=== PATIENT | male | born 1950 | race Caucasian/White ===

== ENCOUNTER 2019-12-14 11:49 | Emergency (ER) | payer SELFPAY ==
[~2019-12-14] VITALS: Ht 162.6 cm; Wt 71.2 kg
[~2019-12-14 11:49] MED LIST: BACL10TA PO; NAPR250T PO
[2019-12-14 11:58] VITALS: BP_SYST 145
[2019-12-14 12:53] LABS: ANION GAP 7 (5-15); BASOPHILS % (AUTO) 0.5 % (0.0-2.0); CALCIUM 8.4 mg/dL (8.4-11.0); CHLORIDE 104 mmol/L (98-107); EOSINOPHILS % (AUTO) 0.5 % (0.0-4.0); GLUCOSE 139 mg/dL (70-99); HEMATOCRIT 40.4 % (36-54); HEMOGLOBIN 13.6 g/dL (14.0-18.0); LYMPHOCYTES # (AUTO) 1.5 K/uL (1.0-5.5); LYMPHOCYTES % (AUTO) 18.9 % (20.5-51.5); MEAN CORPUSCULAR HEMOGLOBIN 31 pg (27-31); MEAN CORPUSCULAR HGB CONC 34 % (32-36); MEAN CORPUSCULAR VOLUME 91 fL (79.0-98.0); MONOCYTES # (AUTO) 0.4 K/uL (0.0-1.0); MONOCYTES % (AUTO) 4.5 % (1.7-9.3); NEUTROPHILS # (AUTO) 6.2 K/uL (1.8-7.7); NEUTROPHILS % (AUTO) 75.6 % (40.0-70.0); PLATELET COUNT (AUTO) 252 K/uL (130-430); POTASSIUM 3.3 mmol/L (3.5-5.1); RED BLOOD CELL COUNT(AUTO) 4.46 MIL/uL (4.2-6.2); RED CELL DISTRIBUTION WIDTH 14.2 % (9.0-15.0); SODIUM SERUM 139 mmol/L (136-145); UREA NITROGEN, BLOOD 14 mg/dL (8-21); WHITE BLOOD COUNT (AUTO) 8.2 K/uL (4.8-10.8)
[2019-12-14 12:56] LABS: GFR AFRICAN AMERICAN 86 mL/min (>90)
[2019-12-14 13:01] LABS: BILIRUBIN,URINE NEGATIVE (NEGATIVE); BLOOD, URINE NEGATIVE (NEGATIVE); CLARITY/URINE CLEAR (CLEAR); COLOR,URINE YELLOW (YELLOW); GLUCOSE,URINE NEGATIVE (NEGATIVE); KETONES,URINE NEGATIVE (NEGATIVE); LEUKOCYTE ESTERASE ,URINE NEGATIVE (NEGATIVE); NITRITE, URINE NEGATIVE (NEGATIVE); PROTEIN URINE NEGATIVE (NEGATIVE); UROBILINOGEN,URINE 0.2 (0.2-1.0)
[2019-12-14 13:01] LABS: ALANINE AMINOTRANSFERASE 28 U/L (12-78); ALBUMIN 3.7 g/dL (3.4-4.8); ASPARTATE AMINOTRANSFERASE 18 U/L (10-37); TOTAL BILIRUBIN 0.6 mg/dL (0.0-1.0)
[2019-12-14 13:28] LABS: BACTERIA,URINE RARE /HPF (None Seen); RBC,URINE 0-3 /HPF (0-3); WBC,URINE 0-3 /HPF (0-3)
[2019-12-14] MEDS ORDERED: POTASSIUM CHLORIDE 20 MEQ TAB.PRT.SR PO ONE (14:00)
[2019-12-14 14:13] VITALS: BP_SYST 132
== END 2019-12-14 14:20 | disposition home or self-care (01) ==
LOC: SED 11:49
DX: R42 Dizziness and giddiness (principal); E87.6 Hypokalemia; D64.9 Anemia, unspecified; I10 Essential (primary) hypertension; Z88.5 Allergy status to narcotic agent; Z79.899 Other long term (current) drug therapy
CPT/HCPCS: 36415; 71045; 80053; 81000-TC; 81003; 82962; 84484; 85025; 93005; 99285

== ENCOUNTER 2021-09-10 13:24 | Emergency (ER) | payer OTHER, SELFPAY ==
[~2021-09-10] VITALS: Ht 162.6 cm; Wt 72.6 kg
[2021-09-10 15:08] VITALS: BP_SYST 129
--- NOTE | 2021-09-10 15:10 | NUR ---
sent to [facility]
--- NOTE | 2021-09-10 17:17 | NUR ---
SEEN BY DR. LYNCH
[2021-09-10] MEDS ORDERED: IBUP-1969 PO (17:38)
[2021-09-10] MEDS ORDERED: KETOROLAC TROMETHAMINE 60 MG/2 ML VIAL IM ONE (17:45)
[2021-09-10 17:55] VITALS: BP_SYST 129
--- NOTE | 2021-09-10 17:55 | NUR ---
Patient given written and verbal discharge instructions and verbalizes understanding. ER MD discussed with patient the results and treatment provided. Patient in stable condition. ID arm band removed. IV catheter removed intact and dressing applied, no active bleeding. Rx of given. Patient educated on pain management and to follow up with PMD. Pain Scale 0/10. Opportunity for questions provided and answered. Medication side effect fact sheet provided.
== END 2021-09-10 17:55 | disposition home or self-care (01) ==
LOC: SED 13:24
DX: M54.31 Sciatica, right side (principal); I10 Essential (primary) hypertension; Z79.899 Other long term (current) drug therapy
CPT/HCPCS: 96372; 99283; J1885

== ENCOUNTER 2023-04-04 14:58 | Inpatient (IN) | payer OTHER ==
[~2023-04-04] VITALS: Ht 165.1 cm; Wt 69.4 kg
[~2023-04-04 14:58] MED LIST changes: +IBUP-1969 PO
[2023-04-04 15:00] VITALS: BP_SYST 148; PULSE 93; RESP 18; TEMP 98.7; O2SAT 98
[2023-04-04] MEDS ORDERED: ATOR10TA68 PO (15:16)
[2023-04-04] MEDS ORDERED: AMLO-138 PO (15:16)
[2023-04-04] MEDS ORDERED: ONDANSETRON HCL 4 MG/2 ML VIAL IVP ONE (15:30)
[2023-04-04] MEDS ORDERED: MORPHINE 2 MG/ML INJ. SYRINGE IVP ONE (15:45)
[2023-04-04 16:15] LABS: BASOPHILS % (AUTO) 0.1 % (0.0-2.0); HEMATOCRIT 37.3 % (36-54); HEMOGLOBIN 12.3 g/dL (14.0-18.0); LYMPHOCYTES # (AUTO) 1.5 K/uL (1.0-5.5); LYMPHOCYTES % (AUTO) 8.7 % (20.5-51.5); MEAN CORPUSCULAR HEMOGLOBIN 29 pg (27-31); MEAN CORPUSCULAR HGB CONC 33 % (32-36); MEAN CORPUSCULAR VOLUME 88 fL (79.0-98.0); MONOCYTES # (AUTO) 1.2 K/uL (0.0-1.0); MONOCYTES % (AUTO) 7.2 % (1.7-9.3); NEUTROPHILS # (AUTO) 14.1 K/uL (1.8-7.7); PLATELET COUNT (AUTO) 263 K/uL (130-430); RED BLOOD CELL COUNT(AUTO) 4.23 MIL/uL (4.2-6.2); RED CELL DISTRIBUTION WIDTH 14.3 % (9.0-15.0); WHITE BLOOD COUNT (AUTO) 16.8 K/uL (4.8-10.8)
[2023-04-04 16:25] LABS: ALANINE AMINOTRANSFERASE 20 U/L (12-78); ALBUMIN 3.4 g/dL (3.4-4.8); ANION GAP 8 (5-15); ASPARTATE AMINOTRANSFERASE 24 U/L (10-37); CALCIUM 8.4 mg/dL (8.4-11.0); CARBON DIOXIDE 29 mmol/L (23-29); CHLORIDE 98 mmol/L (98-107); GLUCOSE 124 mg/dL (74-106); LIPASE 54 U/L (73-393); SODIUM SERUM 135 mmol/L (136-145); TOTAL PROTEIN, SERUM 7.3 g/dL (6.4-8.3); UREA NITROGEN, BLOOD 14 mg/dL (8-21)
[2023-04-04 16:34] LABS: POTASSIUM 2.2 mmol/L (3.5-5.1)
[2023-04-04] MEDS ORDERED: KCL 20 mEq in 100 mL (PREMIX) 100 ML IV ONE ×2 (16:45→20:00)
[2023-04-04 17:46] LABS: BILIRUBIN,URINE NEGATIVE (NEGATIVE); BLOOD, URINE 2+ (NEGATIVE); CLARITY/URINE CLEAR (CLEAR); COLOR,URINE YELLOW (YELLOW); GLUCOSE,URINE NEGATIVE (NEGATIVE); KETONES,URINE 1+ (NEGATIVE); LEUKOCYTE ESTERASE ,URINE NEGATIVE (NEGATIVE); NITRITE, URINE NEGATIVE (NEGATIVE); PH,URINE 6.5 (5.0-8.0); PROTEIN URINE 1+ (NEGATIVE); UROBILINOGEN,URINE 0.2 (0.2-1.0)
[2023-04-04] MEDS ORDERED: POTASSIUM CHLORIDE 20 MEQ TAB.PRT.SR PO ONE ×2 (18:15→22:30)
[2023-04-04 18:19] LABS: BACTERIA,URINE FEW /HPF (None Seen); RBC,URINE 20-50 /HPF (0-3)
[2023-04-04 18:20] LABS: MUCUS,URINE None Seen /LPF (None Seen)
[2023-04-04] MEDS ORDERED: cefTRIAXone 2 GM VIAL ONE (18:21)
[2023-04-04] MEDS ORDERED: TAMSULOSIN HCL 0.4 MG CAP PO ONE (18:30)
[2023-04-04] MEDS ORDERED: NACL 0.9% 1,000 ML IV ONE (18:30)
[2023-04-04] MEDS ORDERED: MORPHINE 4 MG INJ. 4 MG/ML VIAL IVP ONE (20:15)
[2023-04-04 21:30] VITALS: BP_SYST 146; PULSE 96; RESP 20; TEMP 98.8
[2023-04-04 22:00] VITALS: O2SAT 97
[2023-04-04] MEDS ORDERED: HYDROmorphone 1 MG/ML INJ. CARTRIDGE IVP PRN (22:30)
[2023-04-04] MEDS ORDERED: KETOROLAC TROMETHAMINE 15 MG VIAL IVP PRN (22:30)
[2023-04-04] MEDS ORDERED: ACETAMINOPHEN 325 MG TABLET PO PRN (22:30)
[2023-04-04] MEDS ORDERED: ONDANSETRON HCL 4 MG/2 ML VIAL IVP PRN (22:30)
[2023-04-04] MEDS ORDERED: BACLOFEN 10 MG TABLET PO PRN (22:30)
[2023-04-04] MEDS ORDERED: NALOXONE HCL 0.4 MG/ML AMP (NARCAN) IVP PRN (22:30)
[2023-04-04] MEDS ORDERED: cefTRIAXone 1 GM in D5W 50 ML IV SCH (22:45)
[2023-04-05] MEDS: LR 1,000 ML IV SCH ×4 (00:13→21:28)
[2023-04-05 02:58] VITALS: BP_SYST 144; PULSE 86; RESP 18; TEMP 98.3; O2SAT 95
[2023-04-05 06:51] LABS: BASOPHILS % (AUTO) 0.2 % (0.0-2.0); HEMATOCRIT 37.1 % (36-54); HEMOGLOBIN 12.3 g/dL (14.0-18.0); LYMPHOCYTES # (AUTO) 1.4 K/uL (1.0-5.5); LYMPHOCYTES % (AUTO) 11.1 % (20.5-51.5); MEAN CORPUSCULAR HEMOGLOBIN 29 pg (27-31); MEAN CORPUSCULAR HGB CONC 33 % (32-36); MEAN CORPUSCULAR VOLUME 89 fL (79.0-98.0); MONOCYTES # (AUTO) 0.9 K/uL (0.0-1.0); MONOCYTES % (AUTO) 6.9 % (1.7-9.3); NEUTROPHILS # (AUTO) 10.3 K/uL (1.8-7.7); NEUTROPHILS % (AUTO) 81.8 % (40.0-70.0); PLATELET COUNT (AUTO) 237 K/uL (130-430); RED CELL DISTRIBUTION WIDTH 14.5 % (9.0-15.0); WHITE BLOOD COUNT (AUTO) 12.6 K/uL (4.8-10.8)
[2023-04-05 08:00] VITALS: BP_SYST 133; PULSE 94; RESP 18; TEMP 98.5; O2SAT 96
[2023-04-05] MEDS: ATORVASTATIN 10 MG TABLET PO SCH (09:03)
[2023-04-05] MEDS: TAMSULOSIN HCL 0.4 MG CAP PO SCH (09:03)
[2023-04-05] MEDS: cefTRIAXone 1 GM in D5W 50 ML IV SCH (09:03)
[2023-04-05] MEDS: POTASSIUM CHLORIDE 20 MEQ TAB.PRT.SR PO SCH ×2 (09:03→21:20)
[2023-04-05 09:21] LABS: ALANINE AMINOTRANSFERASE 16 U/L (12-78); ALBUMIN 2.9 g/dL (3.4-4.8); ANION GAP 8 (5-15); ASPARTATE AMINOTRANSFERASE 18 U/L (10-37); CALCIUM 7.8 mg/dL (8.4-11.0); CARBON DIOXIDE 28 mmol/L (23-29); CHLORIDE 103 mmol/L (98-107); CREATININE 1.53 mg/dL (0.55-1.30); GLUCOSE 113 mg/dL (74-106); SODIUM SERUM 139 mmol/L (136-145); TOTAL BILIRUBIN 0.9 mg/dL (0.0-1.0); TOTAL PROTEIN, SERUM 6.8 g/dL (6.4-8.3); UREA NITROGEN, BLOOD 13 mg/dL (8-21); URIC ACID 4.5 mg/dL (2.4-7.0)
[2023-04-05 10:00] VITALS: O2SAT 96
[2023-04-05 12:00] VITALS: BP_SYST 135; PULSE 91; RESP 18; TEMP 100.1; O2SAT 97
[2023-04-05 16:00] VITALS: BP_SYST 132; PULSE 92; RESP 18; TEMP 98.6; O2SAT 95
[2023-04-05 20:10] VITALS: BP_SYST 148; PULSE 99; RESP 18; TEMP 99; O2SAT 93
[2023-04-06] VITALS (8 sets, daily range): BP systolic 130–148; PULSE 81–92; RESP 15–18; TEMP 97.5–99.2; O2SAT 93–99
[2023-04-06] MEDS: LR 1,000 ML IV SCH ×2 (06:57→20:47)
[2023-04-06] MEDS: TAMSULOSIN HCL 0.4 MG CAP PO SCH (08:16)
[2023-04-06] MEDS: POTASSIUM CHLORIDE 20 MEQ TAB.PRT.SR PO SCH ×2 (08:16→20:46)
[2023-04-06] MEDS: ATORVASTATIN 10 MG TABLET PO SCH (08:16)
[2023-04-06] MEDS: cefTRIAXone 1 GM in D5W 50 ML IV SCH (08:19)
[2023-04-06 13:07] LABS: BASOPHILS # (AUTO) 0.1 K/uL (0.0-0.2); BASOPHILS % (AUTO) 0.6 % (0.0-2.0); EOSINOPHILS # (AUTO) 0.1 K/uL (0.0-0.4); EOSINOPHILS % (AUTO) 1.4 % (0.0-4.0); HEMATOCRIT 37.2 % (36-54); HEMOGLOBIN 12.3 g/dL (14.0-18.0); LYMPHOCYTES % (AUTO) 21.4 % (20.5-51.5); MEAN CORPUSCULAR HEMOGLOBIN 30 pg (27-31); MEAN CORPUSCULAR HGB CONC 33 % (32-36); MEAN CORPUSCULAR VOLUME 89 fL (79.0-98.0); MONOCYTES # (AUTO) 0.6 K/uL (0.0-1.0); MONOCYTES % (AUTO) 6.2 % (1.7-9.3); NEUTROPHILS # (AUTO) 6.7 K/uL (1.8-7.7); NEUTROPHILS % (AUTO) 70.4 % (40.0-70.0); PLATELET COUNT (AUTO) 256 K/uL (130-430); RED BLOOD CELL COUNT(AUTO) 4.17 MIL/uL (4.2-6.2); RED CELL DISTRIBUTION WIDTH 14.4 % (9.0-15.0); WHITE BLOOD COUNT (AUTO) 9.5 K/uL (4.8-10.8)
[2023-04-06 13:17] LABS: ANION GAP 4 (5-15); CALCIUM 8.6 mg/dL (8.4-11.0); CARBON DIOXIDE 31 mmol/L (23-29); CHLORIDE 105 mmol/L (98-107); GLUCOSE 147 mg/dL (74-106); SODIUM SERUM 140 mmol/L (136-145); UREA NITROGEN, BLOOD 14 mg/dL (8-21)
[2023-04-06 13:24] LABS: POTASSIUM 2.8 mmol/L (3.5-5.1)
[2023-04-06] MEDS ORDERED: POTASSIUM CHLORIDE 20 MEQ TAB.PRT.SR PO ONE ×3 (13:30→20:15)
[2023-04-06] MEDS ORDERED: Potassium Chloride PO (15:39)
[2023-04-06] MEDS ORDERED: TAMS0.4C96 PO (15:39)
[2023-04-06] MEDS ORDERED: NITR-85 PO (15:39)
[2023-04-06] MEDS ORDERED: POTASSIUM CHLORIDE 20 MEQ TAB.PRT.SR ONE (20:43)
[2023-04-07 08:05] VITALS: BP_SYST 140; PULSE 85; RESP 18; TEMP 98.2; O2SAT 97
[2023-04-07] MEDS: cefTRIAXone 1 GM in D5W 50 ML IV SCH (08:40)
[2023-04-07] MEDS: ATORVASTATIN 10 MG TABLET PO SCH (08:42)
[2023-04-07] MEDS: TAMSULOSIN HCL 0.4 MG CAP PO SCH (08:42)
[2023-04-07] MEDS: POTASSIUM CHLORIDE 20 MEQ TAB.PRT.SR PO SCH (08:42)
[2023-04-07] MEDS: LR 1,000 ML IV SCH (08:51)
[2023-04-07] MEDS ORDERED: lisinopriL 20 MG TABLET PO SCH (09:00)
[2023-04-07] MEDS ORDERED: amLODIPine BESYLATE 10 MG TABLET PO SCH (09:00)
[2023-04-07 09:28] VITALS: O2SAT 97
[2023-04-07 09:33] LABS: ANION GAP 5 (5-15); CALCIUM 8.8 mg/dL (8.4-11.0); CARBON DIOXIDE 32 mmol/L (23-29); CHLORIDE 104 mmol/L (98-107); CREATININE 1.11 mg/dL (0.55-1.30); GLUCOSE 156 mg/dL (74-106); POTASSIUM 3.9 mmol/L (3.5-5.1); SODIUM SERUM 141 mmol/L (136-145); UREA NITROGEN, BLOOD 11 mg/dL (8-21)
[2023-04-07 10:44] VITALS: BP_SYST 145; PULSE 89; RESP 18; TEMP 97.5; O2SAT 96
[2023-04-08 07:29] LABS: POTASSIUM,URINE RANDOM 24 mmol/L (12-75); URINE SODIUM, RANDOM 121 mmol/L (40-220)
== END 2023-04-07 11:35 | disposition home or self-care (01) | DRG 690 ==
LOC: SED 14:58 → STU 17:57
PROVIDERS: ADMIT Internal Medicine; ATTEND Internal Medicine
DX: N13.6 Pyonephrosis (principal); R65.10 Systemic inflammatory response syndrome (SIRS) of non-infectious origin without acute organ dysfunction; E87.6 Hypokalemia; N17.0 Acute kidney failure with tubular necrosis; I10 Essential (primary) hypertension; D72.829 Elevated white blood cell count, unspecified; N28.1 Cyst of kidney, acquired; D64.9 Anemia, unspecified; Z88.5 Allergy status to narcotic agent; Z79.899 Other long term (current) drug therapy
CPT/HCPCS: 36415; 71045; 76376; 76770; 80048; 80053; 81000; 82360; 83690; 83735; 84132; 84302; 84550; 84999; 85025; 87086; 88300; 93005; 96365; 96366; 96368; 96375; 99285; G0378; J0696; J1885; J2270; J2405; J3480; J7030; J7060; J7120; Q9967